=== PATIENT | female | born 2000 ===

== ENCOUNTER 2019-04-05 12:37 | Emergency (ER) | payer SELFPAY ==
[~2019-04-05] VITALS: Ht 165.1 cm; Wt 100.0 kg
[2019-04-05 12:42] VITALS: BP 132/68; TEMP 97.5
[2019-04-05] MEDS ORDERED: VYLIBRA 28 TAB1 EACH PO (12:59)
[2019-04-05 13:43] VITALS: PULSE 88
== END 2019-04-05 13:46 | disposition home or self-care (01) ==
LOC: COL.ER 12:37
DX: S61.213A Laceration without foreign body of left middle finger without damage to nail, initial encounter (principal); Z23 Encounter for immunization; W26.0XXA Contact with knife, initial encounter